=== PATIENT | female | born 1960 | race African-American/Black ===

== ENCOUNTER 2016-05-04 12:28 | Inpatient (IN) | payer OTHER ==
[2016-05-04 13:08] VITALS: BMI 34.9
--- NOTE | 2016-05-04 13:54 | HP ---
COWS - Scale Resting Pulse: 0= [place] 80 or Below Sweatin=Flushed/Facial Moisture Restless Observation: 1= Difficult to Sit Still Pupil Size: 0= Normal to Room Light Bone or Joint Aches: 2= Severe Diffuse Aches Runny Nose/ Eye Tearin= Runny Nose/Eyes GI Upset > 30mins: 0= None Tremor Observation: 2= Slight Tremor Visible Yawning Observation: 2= >3x During Session Anxiety or Irritability: 2=Irritable/Anxious Goose Flesh Skin: 3=Piloerection COWS Score: 16 Admission ROS S - HPI Chief Complaint: I am here to get the help I need. Allergies/Adverse Reactions: Allergies Allergy/AdvReac Type Severity Reaction Status Date / Time erythromycin base Allergy Severe Hives Verified 05/04/16 13:04 History of Present Illness: Pt is a 55yr old female with a history of heroin dependence only seeking detox for treatment. Exam Limitations: No Limitations - Ebola screening Have you traveled outside of the country in the last 21 days: No Have you had contact with anyone from an Ebola affected area: No Have you been sick,other than usual withdrawal symptoms: No Do you have a fever: No - Review of Systems Constitutional: Chills, Diaphoresis, Loss of Appetite, Night Sweats, Changes in sleep, Unintentional Wgt. Loss EENT: reports: Blurred Vision, Tearing, Nose Congestion Respiratory: reports: No Symptoms reported Cardiac: reports: No Symptoms Reported GI: reports: Constipated, Diarrhea, Nausea, Poor Appetite, Poor Fluid Intake, Indigestion : reports: No Symptoms Reported Musculoskeletal: reports: Back Pain Integumentary: reports: Flushing, Sweating Neuro: reports: Tingling, Tremors, Dizziness Endocrine: reports: Excessive Sweating, Flushing, Intolerance to Cold, Intolerance to Heat Hematology: reports: No Symptoms Reported Psychiatric: reports: Judgement Intact, Mood/Affect Appropiate, Orientated x3, Agitated, Anxious Other Systems: Reviewed and Negative Patient History - Patient Medical History Hx Anemia: No Hx Asthma: No Hx Chronic Obstructive Pulmonary Disease (COPD): No Hx Cancer: No Hx Cardiac Disorders: No Hx Congestive Heart Failure: No Hx Hypertension: Yes Hx Hypercholesterolemia: No Hx Pacemaker: No HX Cerebrovascular Accident: No Hx Seizures: No Hx Dementia: No Hx Diabetes: Yes (BGM-139) Hx Gastrointestinal Disorders: No Hx Liver Disease: No Hx Genitourinary Disorders: No Hx Sexually Transmitted Disorders: Yes (herpes) Hx Renal Disease (ESRD): No Hx Thyroid Disease: No Hx Human Immunodeficiency Virus (HIV): Yes (diagnosed in 2007 ) Hx Hepatitis C: Yes Hx Depression: Yes Hx Suicide Attempt: No (denies) Hx Bipolar Disorder: Yes Hx Schizophrenia: No - Patient Surgical History Past Surgical History: Yes Hx Neurologic Surgery: No Hx Cataract Extraction: No Hx Cardiac Surgery: No Hx Lung Surgery: No Hx Breast Surgery: No Hx Breast Biopsy: No Hx Abdominal Surgery: No Hx Appendectomy: No Hx Cholecystectomy: No Hx Genitourinary Surgery: No Hx Section: Yes (BTL) Hx Orthopedic Surgery: No Other Surgical History: Rt nephrectomy-2013 Anesthesia Reaction: No - PPD History Previous Implant?: Yes Documented Results: Negative w/o proof Implanted On Prior R Admission?: No PPD to be Administered?: Yes - Reproductive History Patient is a Female of Child Bearing Age (11 -55 yrs old): No LMP comment: >1yr ago Patient : No - Smoking Cessation Smoking history: Current every day smoker Aproximately how many cigarettes per day: 10 Hx Chewing Tobacco Use: No Initiated information on smoking cessation: Yes 'Breaking Loose' booklet given: 05/04/16 - Substance & Tx. History Hx Alcohol Use: No Hx Substance Use: Yes Substance Use Type: Cocaine, Heroin Hx Substance Use Treatment: Yes - Substances Abused Heroin Route: Inhalation Frequency: Daily Amount used: 6 bags Age of first use: 55 Date of Last Use: 05/04/16 Cocaine Route: Smoking Frequency: Daily Amount used: $40 Age of first use: 37 Date of Last Use: 05/04/16 Family Disease History - Family Disease History Family History: Denies Admission Physical Exam BHS - Vital Signs Vital Signs: Vital Signs - 24 hr 05/04/16 12:59 Temperature 98.1 F Pulse Rate 78 Respiratory 20 Rate Blood Pressure 127/78 - Physical General Appearance: Yes: Moderate Distress, Tremorous, Irritable, Sweating, Anxious HEENTM: Yes: Normal ENT Inspection, Normal Voice Respiratory: Yes: Lungs Clear, Normal Breath Sounds, No Respiratory Distress Neck: Yes: No masses,lesions,Nodules Breast: Yes: Within Normal Limits Cardiology: Yes: Regular Rhythm, Regular Rate, S1, S2 Abdominal: Yes: Normal Bowel Sounds, Non Tender, Soft Genitourinary: Yes: Within Normal Limits Back: Yes: Normal Inspection Musculoskeletal: Yes: full range of Motion, Gait Steady Extremities: Yes: Normal Capillary Refill, Non-Tender, Tremors Neurological: Yes: Fully Oriented, Alert, Normal Response Integumentary: Yes: Normal Color, Diaphoresis Lymphatic: Yes: Within Normal Limits - Diagnostic (1) Opioid dependence with withdrawal Current Visit: Yes Status: Chronic (2) Cocaine dependence Current Visit: Yes Status: Chronic Qualifiers: Substance use status: uncomplicated Qualified Code(s): F14.20 - Cocaine dependence, uncomplicated (3) Nicotine dependence Current Visit: Yes Status: Chronic Qualifiers: Nicotine product type: cigarettes Substance use status: uncomplicated Qualified Code(s): F17.210 - Nicotine dependence, cigarettes, uncomplicated (4) Hypertension Current Visit: Yes Status: Chronic Qualifiers: Hypertension type: essential hypertension Qualified Code(s): I10 - Essential (primary) hypertension (5) GERD (gastroesophageal reflux disease) Current Visit: Yes Status: Chronic Qualifiers: Esophagitis presence: without esophagitis Qualified Code(s): K21.9 - Gastro-esophageal reflux disease without esophagitis (6) HIV disease Current Visit: Yes Status: Chronic Comment: pt has her own medication (7) Hepatitis C Current Visit: Yes Status: Chronic Qualifiers: Viral hepatitis chronicity: chronic Hepatic coma status: without hepatic coma Qualified Code(s): B18.2 - Chronic viral hepatitis C Cleared for Admission [facility] - Detox or Rehab [facility] Level of Care: Medically Managed Detox Regimen/Protocol: Methadone [facility] Breath Alcohol Content Breath Alcohol Content: 0 Urine Pregancy Test - Result Urine Test Results: Negative- NO Line Present Urine Drug Screen - Results Drug Screen Negative: No Urine Drug Screen Results: JOEY-Cocaine, OPI-Opiates, BZO-Benzodiazepines
[2016-05-04] MEDS ORDERED: IBUPROFEN 400 MG TABLET (FP) PO PRN (14:05)
[2016-05-04] MEDS ORDERED: NICOTINE POLACRILEX 4 MG GUM BUC PRN (14:05)
[2016-05-04] MEDS ORDERED: LOPERAMIDE HCL 2 MG CAPSULE PO PRN (14:05)
[2016-05-04] MEDS ORDERED: MAG HYDROX/AL HYDROX/SIMETH 30 ML UNIT-DOSE CUP PO PRN (14:05)
[2016-05-04] MEDS ORDERED: P-EPHED 60MG/TRIPROLIDI 2.5MG TABLET PO PRN (14:05)
[2016-05-04] MEDS ORDERED: MENTHOL/PHENOL 1 EACH UD MM PRN (14:05)
[2016-05-04] MEDS ORDERED: guaiFENesin/D-METHORPHAN HB 10 ML UNIT-DOSE CUPS PO PRN (14:05)
[2016-05-04] MEDS ORDERED: MAGNESIUM CITRATE 300 ML BOTTLE PO PRN (14:05)
[2016-05-04] MEDS ORDERED: diphenhydrAMINE HCL 50 MG CAPSULE PO PRN (14:05)
[2016-05-04] MEDS ORDERED: MAGNESIUM HYDROX 2400MG/30ML ORAL SUSPENSION 30 ML CUP PO PRN (14:05)
[2016-05-04] MEDS ORDERED: METHADONE HCL 10 MG TABLET (FOR DETOX USE ONLY) PO ONE ×2 (15:08→23:00)
[2016-05-04] MEDS: diazePAM 5 MG TABLET PO PRN (15:49)
[2016-05-04 17:52] LABS: URINE APPEARANCE CLEAR; URINE BILIRUBIN NEGATIVE (NEGATIVE); URINE BLOOD NEGATIVE (NEGATIVE); URINE COLOR YELLOW; URINE GLUCOSE (UA) NEGATIVE (NEGATIVE); URINE KETONE NEGATIVE (NEGATIVE); URINE LEUK ESTERASE NEGATIVE (NEGATIVE); URINE NITRITE NEGATIVE (NEGATIVE); URINE PROTEIN NEGATIVE (NEGATIVE); URINE UROBILINOGEN NEGATIVE E.U./dl (0.2-1.0)
[2016-05-04] MEDS: metFORMIN HCL 500 MG TABLET (FP) PO SCH (18:04)
[2016-05-04] MEDS: ATORVASTATIN CA 40 MG TABLET (FP) PO SCH (23:23)
[2016-05-04] MEDS: CARVEDILOL 6.25 MG TABLET (FP) PO SCH (23:23)
[2016-05-04] MEDS: RALTEGRAVIR POTASSIUM 400 MG TAB PO SCH (23:25)
[2016-05-04] MEDS: ETRAVIRINE 200 MG TABLET PO SCH (23:25)
[2016-05-04] MEDS: THIAMINE HCL 100 MG TABLET (FP) PO SCH (23:26)
[2016-05-05] MEDS: metFORMIN HCL 500 MG TABLET (FP) PO SCH ×2 (06:34→17:24)
[2016-05-05] MEDS: LIRAGLUTIDE 0.6 MG/0.1 ML PEN.INJCTR SQ SCH (06:34)
--- NOTE | 2016-05-05 09:54 | CONSULT ---
[facility] Psychiatric Consult - Data Date of interview: 05/05/16 Admission source: [facility] Identifying data: First admission to [facility] for this 55 y/o AA female seeking detox treatment on for heroin and cocaine dependence.Patient is single,a mother of three,homeless,unemployed and supported on SSI benefits. Substance Abuse History: - Smoking Cessation. Smoking history: Current every day smoker. Aproximately how many cigarettes per day: 10. Hx Chewing Tobacco Use: No. Initiated information on smoking cessation: Yes. 'Breaking Loose' booklet given: 05/04/16. - Substance & Tx. History. Hx Alcohol Use: No. Hx Substance Use: Yes. Substance Use Type: Cocaine, Heroin. Hx Substance Use Treatment: Yes. - Substances Abused. Heroin. Route: Inhalation. Frequency : Daily. Amount used: 6 bags. Age of first use: 55. Date of Last Use: . Cocaine. Route: Smoking. Frequency: Daily. Amount used: $40. Age of first use: 37. Date of Last Use: 05/04/16. Confirmed by patient. Medical History: Remarkable for a history of herpes genitalis,HIV infection since 2007,insulin-dependent diabetes mellitus,hepatitis C and right nephrectomy (2013). Psychiatric History: Patient denies history of psychiatric hospitalizations.Ms Denny states that she used to see a private psychiatrist for " depression and bipolar." Dropped out of treatment eight months ago.Patient,in this interview, denies taking psychotropic medications.Except for chronic insomnia,she remains asymptomatic.No reported history of suicide attempts. Physical/Sexual Abuse/Trauma History: Patient denies. Additional Comment: Urine Drug Screen Results: JOEY-Cocaine, OPI-Opiates, BZO- Benzodiazepines.Noted. Mental Status Exam - Mental Status Exam Alert and Oriented to: Time, Place, Person Cognitive Function: Good Patient Appearance: Well Groomed Mood: Nervous, Anxious, Hopeful Affect: Mood Congruent Patient Behavior: Fatigued, Appropriate, Cooperative Speech Pattern: Clear Voice Loudness: Normal Thought Process: Goal Oriented Thought Disorder: Not Present Hallucinations: Denies Suicidal Ideation: Denies Homicidal Ideation: Denies Insight/Judgement: Poor Sleep: Poorly, Difficulty falling asleep (patient is requesting zolpidem) Appetite: Good Muscle strength/Tone: Normal Gait/Station: Normal Psychiatric Findings - Problem List ([place] 1, 2,3) (1) Opioid dependence with withdrawal Current Visit: Yes Status: Acute (2) Cocaine dependence Current Visit: Yes Status: Acute Qualifiers: Substance use status: uncomplicated Qualified Code(s): F14.20 - Cocaine dependence, uncomplicated (3) Nicotine dependence Current Visit: Yes Status: Acute Qualifiers: Nicotine product type: cigarettes Substance use status: uncomplicated Qualified Code(s): F17.210 - Nicotine dependence, cigarettes, uncomplicated (4) Substance induced mood disorder Current Visit: Yes Status: Acute (5) GERD (gastroesophageal reflux disease) Current Visit: Yes Status: Chronic Qualifiers: Esophagitis presence: without esophagitis Qualified Code(s): K21.9 - Gastro-esophageal reflux disease without esophagitis (6) HIV disease Current Visit: Yes Status: Chronic Comment: pt has her own medication (7) Hepatitis C Current Visit: Yes Status: Chronic Qualifiers: Viral hepatitis chronicity: chronic Hepatic coma status: without hepatic coma Qualified Code(s): B18.2 - Chronic viral hepatitis C (8) Hypertension Current Visit: Yes Status: Chronic Qualifiers: Hypertension type: essential hypertension Qualified Code(s): I10 - Essential (primary) hypertension (9) Insomnia Current Visit: Yes Status: Acute - Initial Treatment Plan Initial Treatment Plan: Psychoeducation.Detoxification.Zolpidem 5 mg po hs prn.Patient is made aware of the risk of parasomnias.Observation.
[2016-05-05] MEDS ORDERED: METHADONE HCL 10 MG TABLET (FOR DETOX USE ONLY) PO ONE (10:00)
[2016-05-05] MEDS ORDERED: PATIENT'S OWN MEDICATION (NON-FORMULARY) (Valsartan/Hydrochlorothiazide [Valsartan-Hctz 16 PO SCH (10:00)
[2016-05-05 10:25] LABS: MCH 23.3 pg (25.7-33.7); MCHC 30.4 g/dl (32.0-36.0); MEAN CELL VOLUME 76.6 fl (80-96); MEAN PLT VOLUME 9.3 fl (7.5-11.1); PLATELET COUNT 336 K/MM3 (134-434); RDW 18.4 % (11.6-15.6); WHITE BLOOD COUNT 11.1 K/mm3 (4.0-10.0)
[2016-05-05] MEDS: VALSARTAN 160 MG TABLET (UD) PO SCH (10:38)
[2016-05-05] MEDS: CARVEDILOL 6.25 MG TABLET (FP) PO SCH ×2 (10:38→22:14)
[2016-05-05] MEDS: HYDROCHLOROTHIAZIDE 25 MG TABLET (FP) PO SCH (10:39)
[2016-05-05] MEDS: RALTEGRAVIR POTASSIUM 400 MG TAB PO SCH ×2 (10:39→22:15)
[2016-05-05] MEDS: ETRAVIRINE 200 MG TABLET PO SCH ×2 (10:39→22:16)
[2016-05-05] MEDS: PRENATAL VITAMINS W/ FOLIC ACID TABLET (FP) PO SCH (10:40)
[2016-05-05] MEDS: NICOTINE 21 MG/24 HOURS TOPICAL PATCH TD SCH (10:40)
[2016-05-05] MEDS: PANTOPRAZOLE 40 MG TABLET (FP) PO SCH (10:40)
[2016-05-05] MEDS: RIVAROXABAN 20 MG TABLET PO SCH (10:41)
[2016-05-05] MEDS: diazePAM 5 MG TABLET PO PRN ×3 (10:42→22:15)
[2016-05-05] MEDS ORDERED: QUEtiapine FUMARATE 100 MG TABLET (FP) PO SCH ×2 (10:45→22:00)
[2016-05-05] MEDS: ACETAMINOPHEN 325 MG TABLET (FP) PO PRN ×2 (11:06→17:25)
[2016-05-05 11:47] LABS: ALBUMIN 3.8 g/dl (3.4-5.0); BILIRUBIN,TOTAL 0.5 mg/dL (0.2-1.0); CALCIUM 9.2 mg/dL (8.5-10.1); CREATININE 1.4 mg/dL (0.55-1.02); TOT PROT 7.6 g/dl (6.4-8.2)
--- NOTE | 2016-05-05 14:00 | PN ---
BHS COWS - Scale Resting Pulse: 0= [place] 80 or Below Sweatin= Chills/Flushing Restless Observation: 3= Extraneous Movement Pupil Size: 1= Pupils >than Normal Bone or Joint Aches: 2= Severe Diffuse Aches Runny Nose/ Eye Tearin= Runny Nose/Eyes GI Upset > 30mins: 3= Vomiting/Diarrhea Tremor Observation of Outstretched Hands: 2= Slight Tremor Visible Yawning Observation: 1= 1-2x During Session Anxiety or Irritability: 2=Irritable/Anxious Goose Flesh Skin: 0=Smooth Skin COWS Score: 17 S Progress Note (SOAP) Subjective: ALERT,IRRITABLE,ANXIOUS,PAIN IN THE BODY AND BACK,TREMOR,INTERRUPTED SLEEP Objective: 05/05/16 13:57 Vital Signs Temperature 97.9 F 05/05/16 10:00 Pulse Rate 70 05/05/16 10:00 Respiratory Rate 18 05/05/16 10:00 Blood Pressure 153/100 05/05/16 10:00 O2 Sat by Pulse Oximetry (%) EKG NSR,NORMAL ECG Laboratory Last Values WBC 11.1 K/mm3 (4.0-10.0) H 05/05/16 08:00 RBC 4.01 M/mm3 (3.60-5.2) 05/05/16 08:00 Hgb 9.4 GM/dL (10.7-15.3) L 05/05/16 08:00 Hct 30.7 % (32.4-45.2) L 05/05/16 08:00 MCV 76.6 fl (80-96) L 05/05/16 08:00 MCHC 30.4 g/dl (32.0-36.0) L 05/05/16 08:00 RDW 18.4 % (11.6-15.6) H 05/05/16 08:00 Plt Count 336 K/MM3 (134-434) 05/05/16 08:00 MPV 9.3 fl (7.5-11.1) 05/05/16 08:00 Sodium 137 mmol/L (136-145) 05/05/16 08:00 Potassium 3.8 mmol/L (3.5-5.1) 05/05/16 08:00 Chloride 104 mmol/L (98-107) 05/05/16 08:00 Carbon Dioxide 25 mmol/L (21-32) 05/05/16 08:00 Anion Gap 8 (8-16) 05/05/16 08:00 BUN 26 mg/dL (7-18) H 05/05/16 08:00 Creatinine 1.4 mg/dL (0.55-1.02) H 05/05/16 08:00 Creat Clearance w eGFR 39.04 (>60) 05/05/16 08:00 POC Glucometer 133 UNITS (()) 05/05/16 06:33 Random Glucose 174 mg/dL (74-106) H 05/05/16 08:00 Calcium 9.2 mg/dL (8.5-10.1) 05/05/16 08:00 Total Bilirubin 0.5 mg/dL (0.2-1.0) 05/05/16 08:00 AST 20 U/L (15-37) 05/05/16 08:00 ALT 18 U/L (12-78) 05/05/16 08:00 Alkaline Phosphatase 132 U/L (45-117) H 05/05/16 08:00 Total Protein 7.6 g/dl (6.4-8.2) 05/05/16 08:00 Albumin 3.8 g/dl (3.4-5.0) 05/05/16 08:00 Urine Color Yellow 05/04/16 17:00 Urine Appearance Clear 05/04/16 17:00 Urine pH 5.0 (5.0-8.0) 05/04/16 17:[address] 1.019 (1.001-1.035) 05/04/16 17:00 Urine Protein Negative (NEGATIVE) 05/04/16 17:00 Urine Glucose (UA) Negative (NEGATIVE) 05/04/16 17:00 Urine Ketones Negative (NEGATIVE) 05/04/16 17:00 Urine Blood Negative (NEGATIVE) 05/04/16 17:00 Urine Nitrite Negative (NEGATIVE) 05/04/16 17:00 Urine Bilirubin Negative (NEGATIVE) 05/04/16 17:00 Urine Urobilinogen Negative E.U./dl (0.2-1.0) 05/04/16 17:00 Ur Leukocyte Esterase Negative (NEGATIVE) 05/04/16 17:00 RPR Titer Nonreactive (NONREACTIVE) 05/05/16 08:00 Assessment: 05/05/16 13:59 WITHDRAWAL SYMPTOM Plan: CONTINUE DETOX,START ON IRON,GLUCERNA,BGM MONITORING
--- NOTE | 2016-05-05 16:23 | EKG ---
Test Reason : Blood Pressure : / mmHG Vent. Rate : 091 BPM Atrial Rate : 091 BPM P-R Int : 156 ms QRS Dur : 078 ms QT Int : 382 ms P-R-T Axes : 059 030 044 degrees QTc Int : 469 ms NORMAL SINUS RHYTHM NORMAL ECG NO PREVIOUS ECGS AVAILABLE Confirmed by PAUL STINSON MD ([id number]) on 05/05/2016 4:22:35 PM Referred By: Confirmed By:PAUL STINSON MD
[2016-05-05] MEDS: FERROUS SO4 325 MG TABLET (FP) PO SCH (22:15)
[2016-05-05] MEDS: ATORVASTATIN CA 40 MG TABLET (FP) PO SCH (22:15)
[2016-05-05] MEDS: THIAMINE HCL 100 MG TABLET (FP) PO SCH (22:15)
[2016-05-06] MEDS: LIRAGLUTIDE 0.6 MG/0.1 ML PEN.INJCTR SQ SCH (06:39)
[2016-05-06] MEDS: metFORMIN HCL 500 MG TABLET (FP) PO SCH ×2 (06:39→17:13)
[2016-05-06] MEDS: ACETAMINOPHEN 325 MG TABLET (FP) PO PRN ×2 (07:42→17:15)
[2016-05-06] MEDS: diazePAM 5 MG TABLET PO PRN ×3 (07:42→22:14)
[2016-05-06 09:15] LABS: MCH 23.2 pg (25.7-33.7); MCHC 31.1 g/dl (32.0-36.0); MEAN CELL VOLUME 74.7 fl (80-96); PLATELET COUNT 300 K/MM3 (134-434); RDW 18.3 % (11.6-15.6); WHITE BLOOD COUNT 10.2 K/mm3 (4.0-10.0)
[2016-05-06 09:28] LABS: CALCIUM 9.1 mg/dL (8.5-10.1)
[2016-05-06 09:33] LABS: ALBUMIN 3.4 g/dl (3.4-5.0); BILIRUBIN,TOTAL 0.4 mg/dL (0.2-1.0); TOT PROT 6.9 g/dl (6.4-8.2)
[2016-05-06] MEDS ORDERED: METHADONE HCL 5 MG TABLET (FOR DETOX USE ONLY) PO ONE (10:00)
[2016-05-06] MEDS ORDERED: ESCITALOPRAM OXALATE 20 MG TABLET (FP) PO SCH (10:00)
[2016-05-06] MEDS: VALSARTAN 160 MG TABLET (UD) PO SCH (10:38)
[2016-05-06] MEDS: CARVEDILOL 6.25 MG TABLET (FP) PO SCH ×2 (10:38→22:13)
[2016-05-06] MEDS: NICOTINE 21 MG/24 HOURS TOPICAL PATCH TD SCH (10:39)
[2016-05-06] MEDS: HYDROCHLOROTHIAZIDE 25 MG TABLET (FP) PO SCH (10:39)
[2016-05-06] MEDS: ETRAVIRINE 200 MG TABLET PO SCH ×2 (10:39→22:13)
[2016-05-06] MEDS: RALTEGRAVIR POTASSIUM 400 MG TAB PO SCH ×2 (10:39→22:14)
[2016-05-06] MEDS: FERROUS SO4 325 MG TABLET (FP) PO SCH ×2 (10:39→22:13)
[2016-05-06] MEDS: PRENATAL VITAMINS W/ FOLIC ACID TABLET (FP) PO SCH (10:40)
[2016-05-06] MEDS: RIVAROXABAN 20 MG TABLET PO SCH (10:40)
[2016-05-06] MEDS: PANTOPRAZOLE 40 MG TABLET (FP) PO SCH (10:40)
--- NOTE | 2016-05-06 13:29 | PN ---
BHS COWS - Scale Resting Pulse: 0= [place] 80 or Below Sweatin=Flushed/Facial Moisture Restless Observation: 3= Extraneous Movement Pupil Size: 1= Pupils >than Normal Bone or Joint Aches: 2= Severe Diffuse Aches Runny Nose/ Eye Tearin= Runny Nose/Eyes GI Upset > 30mins: 2= Nausea/Diarrhea Tremor Observation of Outstretched Hands: 2= Slight Tremor Visible Yawning Observation: 1= 1-2x During Session Anxiety or Irritability: 2=Irritable/Anxious Goose Flesh Skin: 0=Smooth Skin COWS Score: 17 BHS Progress Note (SOAP) Subjective: ALERT,IRRITABLE,ANXIOUS,INTERRUPTED SLEEP,TREMOR,PAIN IN THE BODY Objective: 05/06/16 13:27 Vital Signs Temperature 98.1 F 05/06/16 10:00 Pulse Rate 83 05/06/16 10:00 Respiratory Rate 16 05/06/16 10:00 Blood Pressure 159/89 05/06/16 10:00 O2 Sat by Pulse Oximetry (%) Laboratory Last Values WBC 10.2 K/mm3 (4.0-10.0) H 05/06/16 07:20 RBC 3.87 M/mm3 (3.60-5.2) 05/06/16 07:20 Hgb 9.0 GM/dL (10.7-15.3) L 05/06/16 07:20 Hct 28.9 % (32.4-45.2) L 05/06/16 07:20 MCV 74.7 fl (80-96) L 05/06/16 07:20 MCHC 31.1 g/dl (32.0-36.0) L 05/06/16 07:20 RDW 18.3 % (11.6-15.6) H 05/06/16 07:20 Plt Count 300 K/MM3 (134-434) 05/06/16 07:20 MPV 9.0 fl (7.5-11.1) 05/06/16 07:20 Sodium 140 mmol/L (136-145) 05/06/16 07:20 Potassium 4.1 mmol/L (3.5-5.1) 05/06/16 07:20 Chloride 106 mmol/L (98-107) 05/06/16 07:20 Carbon Dioxide 27 mmol/L (21-32) 05/06/16 07:20 Anion Gap 7 (8-16) L 05/06/16 07:20 BUN 17 mg/dL (7-18) D 05/06/16 07:20 Creatinine 1.0 mg/dL (0.55-1.02) D 05/06/16 07:20 Creat Clearance w eGFR 57.56 (>60) 05/06/16 07:20 POC Glucometer 130 UNITS (()) 05/06/16 06:34 Random Glucose 147 mg/dL (74-106) H 05/06/16 07:20 Calcium 9.1 mg/dL (8.5-10.1) 05/06/16 07:20 Total Bilirubin 0.4 mg/dL (0.2-1.0) 05/06/16 07:20 AST 11 U/L (15-37) L D 05/06/16 07:20 ALT 15 U/L (12-78) 05/06/16 07:20 Alkaline Phosphatase 100 U/L (45-117) D 05/06/16 07:20 Total Protein 6.9 g/dl (6.4-8.2) 05/06/16 07:20 Albumin 3.4 g/dl (3.4-5.0) 05/06/16 07:20 Urine Color Yellow 05/04/16 17:00 Urine Appearance Clear 05/04/16 17:00 Urine pH 5.0 (5.0-8.0) 05/04/16 17:00 Ur Specific [place] 1.019 (1.001-1.035) 05/04/16 17:00 Urine Protein Negative (NEGATIVE) 05/04/16 17:00 Urine Glucose (UA) Negative (NEGATIVE) 05/04/16 17:00 Urine Ketones Negative (NEGATIVE) 05/04/16 17:00 Urine Blood Negative (NEGATIVE) 05/04/16 17:00 Urine Nitrite Negative (NEGATIVE) 05/04/16 17:00 Urine Bilirubin Negative (NEGATIVE) 05/04/16 17:00 Urine Urobilinogen Negative E.U./dl (0.2-1.0) 05/04/16 17:00 Ur Leukocyte Esterase Negative (NEGATIVE) 05/04/16 17:00 RPR Titer Nonreactive (NONREACTIVE) 05/05/16 08:00 Assessment: 05/06/16 13:28 WITHDRAWAL SYMPTOM Plan: CONTINUE DETOX,BGM 130,GM MONITORING BID
[2016-05-06] MEDS: ATORVASTATIN CA 40 MG TABLET (FP) PO SCH (22:14)
[2016-05-06] MEDS: THIAMINE HCL 100 MG TABLET (FP) PO SCH (22:15)
[2016-05-07] MEDS: metFORMIN HCL 500 MG TABLET (FP) PO SCH ×2 (07:09→18:13)
[2016-05-07] MEDS: diazePAM 5 MG TABLET PO PRN ×2 (07:12→12:34)
[2016-05-07] MEDS: ACETAMINOPHEN 325 MG TABLET (FP) PO PRN ×2 (07:35→20:11)
[2016-05-07] MEDS: LIRAGLUTIDE 0.6 MG/0.1 ML PEN.INJCTR SQ SCH (07:36)
[2016-05-07] MEDS ORDERED: METHADONE HCL 5 MG TABLET (FOR DETOX USE ONLY) PO ONE (10:00)
[2016-05-07] MEDS: PRENATAL VITAMINS W/ FOLIC ACID TABLET (FP) PO SCH (10:25)
[2016-05-07] MEDS: VALSARTAN 160 MG TABLET (UD) PO SCH (10:26)
[2016-05-07] MEDS: RIVAROXABAN 20 MG TABLET PO SCH (10:26)
[2016-05-07] MEDS: HYDROCHLOROTHIAZIDE 25 MG TABLET (FP) PO SCH (10:26)
[2016-05-07] MEDS: FERROUS SO4 325 MG TABLET (FP) PO SCH ×2 (10:26→22:35)
[2016-05-07] MEDS: PANTOPRAZOLE 40 MG TABLET (FP) PO SCH (10:26)
[2016-05-07] MEDS: RALTEGRAVIR POTASSIUM 400 MG TAB PO SCH ×2 (10:26→22:35)
[2016-05-07] MEDS: CARVEDILOL 6.25 MG TABLET (FP) PO SCH ×2 (10:26→22:35)
[2016-05-07] MEDS: ETRAVIRINE 200 MG TABLET PO SCH ×2 (10:26→22:36)
[2016-05-07] MEDS ORDERED: LIDOCAINE 5% TOPICAL PATCH TP SCH (10:30)
[2016-05-07] MEDS: NICOTINE 21 MG/24 HOURS TOPICAL PATCH TD SCH (12:32)
--- NOTE | 2016-05-07 13:21 | PN ---
S Progress Note (SOAP) Subjective: ALERT,IRRITABLE,ANXIOUS,PAIN IN THE BODY AND BACK Objective: 05/07/16 13:18 05/07/16 13:19 Vital Signs Temperature 97.9 F 05/07/16 10:03 Pulse Rate 67 05/07/16 10:03 Respiratory Rate 18 05/07/16 10:03 Blood Pressure 150/99 05/07/16 10:03 O2 Sat by Pulse Oximetry (%) Assessment: 05/07/16 13:19 WITHDRAWAL SYMPTOM Plan: CONTINUE DETOX,PATIENT COMPLAINED OF PAIN IN THE BACK CHRONIC,LIDODERM PATCH 5% ORDER
[2016-05-07] MEDS: hydrOXYzine PAMOATE 50 MG CAPSULE (FP) PO PRN (18:15)
[2016-05-07] MEDS: ATORVASTATIN CA 40 MG TABLET (FP) PO SCH (22:35)
[2016-05-07] MEDS: THIAMINE HCL 100 MG TABLET (FP) PO SCH (22:35)
[2016-05-08] MEDS: LIRAGLUTIDE 0.6 MG/0.1 ML PEN.INJCTR SQ SCH (08:47)
[2016-05-08] MEDS: metFORMIN HCL 500 MG TABLET (FP) PO SCH (08:47)
[2016-05-08] MEDS: PANTOPRAZOLE 40 MG TABLET (FP) PO SCH (09:47)
[2016-05-08] MEDS: RALTEGRAVIR POTASSIUM 400 MG TAB PO SCH (09:47)
[2016-05-08] MEDS: CARVEDILOL 6.25 MG TABLET (FP) PO SCH (09:47)
[2016-05-08] MEDS: HYDROCHLOROTHIAZIDE 25 MG TABLET (FP) PO SCH (09:47)
[2016-05-08] MEDS: RIVAROXABAN 20 MG TABLET PO SCH (09:48)
[2016-05-08] MEDS: VALSARTAN 160 MG TABLET (UD) PO SCH (09:48)
[2016-05-08] MEDS: FERROUS SO4 325 MG TABLET (FP) PO SCH (09:48)
[2016-05-08] MEDS: ETRAVIRINE 200 MG TABLET PO SCH (09:49)
[2016-05-08] MEDS: PRENATAL VITAMINS W/ FOLIC ACID TABLET (FP) PO SCH (09:50)
[2016-05-08] MEDS: hydrOXYzine PAMOATE 50 MG CAPSULE (FP) PO PRN (09:53)
[2016-05-08] MEDS ORDERED: METHADONE HCL 10 MG TABLET (FOR DETOX USE ONLY) PO ONE (10:00)
--- NOTE | 2016-05-08 10:12 | DS ---
[facility] Detox Discharge Summary Admission Date: 05/04/16 Discharge Date: 05/08/16 - History Present History: Alcohol Dependence, Cocaine Dependence, Opioid Dependence - Physical Exam Results Vital Signs: Vital Signs Temperature 98 F 05/08/16 06:57 Pulse Rate 65 05/08/16 06:57 Respiratory Rate 16 05/08/16 06:57 Blood Pressure 111/66 05/08/16 06:57 O2 Sat by Pulse Oximetry (%) - Treatment Hospital Course: Detox Protocol Followed, Detoxed Safely, Responded well, Discharged Condition Good - Medication Discharge Medications: Ambulatory Orders Carvedilol [Coreg -] 6.25 mg PO BID 05/04/16 Escitalopram Oxalate [Lexapro -] 20 mg PO DAILY 05/04/16 Etravirine [Intelence -] 200 mg PO BID 05/04/16 Liraglutide [Victoza -] 1.8 mg SQ DAILY@0700 05/04/16 Omeprazole 40 mg PO DAILY 05/04/16 Pravastatin Sodium [Pravachol (Nf)] 80 mg PO DAILY 05/04/16 Raltegravir [Isentress -] 400 mg PO BID 05/04/16 Rivaroxaban [Xarelto -] 20 mg PO DAILY 05/04/16 Valsartan/Hydrochlorothiazide [Valsartan-Hctz 160-25 mg Tab] 1 each PO DAILY Atorvastatin Ca [Lipitor] 80 mg PO HS tablet 05/08/16 Etravirine [Intelence -] 200 mg PO BID tablet 05/08/16 Ferrous Sulfate [Feosol] 325 mg PO BID ud 05/08/16 Hydrochlorothiazide [Hctz -] 25 mg PO DAILY tablet 05/08/16 Liraglutide [Victoza -] 1.8 mg SQ DAILY@0700 pen.[email or web address] 05/08/16 Magnesium Citrate [Citroma -] 300 ml PO Q48H PRN #0 bottle 05/08/16 Metformin HCl [Glucophage -] 1,000 mg PO BIDAC tablet 05/08/16 Pantoprazole Sodium [Protonix -] 40 mg PO DAILY tablet.ec 05/08/16 Raltegravir [Isentress] 400 mg PO BID tab 05/08/16 Rivaroxaban [Xarelto -] 20 mg PO DAILY tablet 05/08/16 Valsartan [Diovan] 160 mg PO DAILY tablet 05/08/16 - Diagnosis (1) Cocaine dependence Current Visit: Yes Status: Chronic Qualifiers: Substance use status: uncomplicated Qualified Code(s): F14.20 - Cocaine dependence, uncomplicated (2) Insomnia Current Visit: Yes Status: Chronic Qualifiers: Insomnia type: unspecified Qualified Code(s): G47.00 - Insomnia, unspecified (3) Nicotine dependence Current Visit: Yes Status: Chronic Qualifiers: Nicotine product type: cigarettes Substance use status: uncomplicated Qualified Code(s): F17.210 - Nicotine dependence, cigarettes, uncomplicated (4) Opioid dependence with withdrawal Current Visit: Yes Status: Chronic (5) GERD (gastroesophageal reflux disease) Current Visit: Yes Status: Chronic Qualifiers: Esophagitis presence: without esophagitis Qualified Code(s): K21.9 - Gastro-esophageal reflux disease without esophagitis (6) HIV disease Current Visit: Yes Status: Chronic (7) Hepatitis C Current Visit: Yes Status: Chronic Qualifiers: Viral hepatitis chronicity: chronic Hepatic coma status: without hepatic coma Qualified Code(s): B18.2 - Chronic viral hepatitis C (8) Hypertension Current Visit: Yes Status: Chronic Qualifiers: Hypertension type: essential hypertension Qualified Code(s): I10 - Essential (primary) hypertension - AMA Did Patient Leave Against Medical Advice: No (pt feeling well requested early d/ c )
[2016-05-08 10:20] VITALS: BP 140/90; PULSE 83; TEMP 98.8
[2016-05-09] MEDS ORDERED: METHADONE HCL 5 MG TABLET (FOR DETOX USE ONLY) PO ONE (06:00)
== END 2016-05-08 10:15 | disposition home or self-care (01) | DRG 897 ==
LOC: YASAS 12:28 → Y6N 14:47
PROVIDERS: ADMIT Internal Medicine; ATTEND Internal Medicine
PROC: HZ2ZZZZ Detoxification Services for Substance Abuse Treatment (ICD-10-PCS; principal; 2016-05-04)
DX: F19.230 Other psychoactive substance dependence with withdrawal, uncomplicated (principal); F14.20 Cocaine dependence, uncomplicated; F11.23 Opioid dependence with withdrawal; F17.210 Nicotine dependence, cigarettes, uncomplicated; F19.24 Other psychoactive substance dependence with psychoactive substance-induced mood disorder; G47.00 Insomnia, unspecified; K21.9 Gastro-esophageal reflux disease without esophagitis; Z21 Asymptomatic human immunodeficiency virus [HIV] infection status; B18.2 Chronic viral hepatitis C; E11.9 Type 2 diabetes mellitus without complications; Z79.4 Long term (current) use of insulin; Z87.42 Personal history of other diseases of the female genital tract; Z90.5 Acquired absence of kidney; Z59.0 Homelessness
CPT/HCPCS: 36415; 80053; 81003; 85027; 86593; 93005; 93010